=== PATIENT | male | born 2000 | race Caucasian/White ===

== ENCOUNTER → 2023-02-07 | Outpatient (CLI) | payer OTHER ==
--- NOTE | 2023-02-11 16:13 | MR ---
EXAMINATION TYPE: MR abdomen wo/w con DATE OF EXAM: 02/07/2023 1:13 PM CLINICAL INDICATION:Male, 22 years old with history of K85.91 ACUTE PANCREATITIS WITH UNINFECTED NECR OSIS; PHH, Back pain, acute pancreatitis w/ uninfected necrosis COMPARISON: CT scan abdomen from 08/08/2022. Ultrasound 12/21/2022 TECHNIQUE: Multiplanar multi-sequence imaging was performed without contrast. Post contrast imaging was performed. Post IV contrast subtraction images were also submitted for review. IV Contrast: 7 cc Gadobutrol FINDINGS: LOWER CHEST: No gross irregularity. ABDOMEN Liver: No evidence for hepatic steatosis or cirrhosis. Gallbladder and Bile ducts: No evidence for ductal dilation, or biliary stricture or evidence of chol edocholithiasis. The gallbladder is within normal limits. Pancreas: No ductal dilation. No evidence for solid mass. The pancreatic bed, as uniform appearance o n T1 and T2 weighted imaging. Postcontrast imaging of the pancreas shows no evidence of nonenhancemen t. Prior edema on 08/08/2022 is no longer visualized. Spleen: Normal for size. Adrenal glands: Unremarkable. Kidneys: No evidence for obstructive uropathy. No suspicious renal masses. Stomach and Bowel: No evidence for bowel wall thickening or evidence for obstruction.. Peritoneum: No evidence of pneumoperitoneum or free fluid. Vasculature: No aortic aneurysm. Musculoskeletal: The osseous structures appear intact. Lymph Nodes: No gross evidence for lymphadenopathy. Abdominal wall: Unremarkable. IMPRESSION: Pancreatic parenchyma is rather homogenous, no definitive evidence for pancreatic parenchyma necrosis . No ductal dilation. No organizing fluid collections within the abdomen/pelvis. Interval Reduction i n acute pancreatitis findings seen on 08/08/2022 CT which is felt to be nearly resolved on today's exam .
== END | disposition home or self-care (01) ==
LOC: RADMRIMAIN 12:29
PROVIDERS: ATTEND Internal Medicine Gastroenterology
DX: K85.91 Acute pancreatitis with uninfected necrosis, unspecified (principal)
CPT/HCPCS: 74183; A9585